=== PATIENT | male | born 1980 | race Caucasian/White ===

== ENCOUNTER 2019-10-04 08:15 | Emergency (ER) | payer OTHER, SELFPAY ==
[2019-10-04 16:53] LABS: SARS-CoV-2 MS2 Positive; SARS-CoV-2 N Gene Negative; SARS-CoV-2 S Gene Negative; SARS-CoV-2 orf1ab Negative
== END 2019-10-04 08:53 | disposition home or self-care (01) ==
LOC: ERS 08:15
DX: R06.02 Shortness of breath (principal); R11.0 Nausea; Z20.828 Contact with and (suspected) exposure to other viral communicable diseases; F17.200 Nicotine dependence, unspecified, uncomplicated
CPT/HCPCS: 87635; 99284; U0003

== ENCOUNTER 2020-02-02 09:56 | Emergency (ER) | payer SELFPAY ==
[2020-02-02 23:01] LABS: SARS-CoV-2 MS2 Positive; SARS-CoV-2 N Gene Negative; SARS-CoV-2 S Gene Negative; SARS-CoV-2 by NAA Not Detected (NotDetected); SARS-CoV-2 orf1ab Negative
== END 2020-02-02 10:31 | disposition home or self-care (01) ==
LOC: ERS 09:56
DX: R42 Dizziness and giddiness (principal); R11.0 Nausea; Z20.828 Contact with and (suspected) exposure to other viral communicable diseases
CPT/HCPCS: 87635; 99284; U0003

== ENCOUNTER 2020-05-20 22:20 | Emergency (ER) | payer SELFPAY ==
--- NOTE | 2020-05-20 22:52 | RAD ---
Exam:Right tibia fibula 2 view HISTORY: Trauma.-. COMPARISON: None FINDINGS: Small soft tissue laceration the anterior mid aspect of the right foot. Overlying bandage m aterial is identified. No radiopaque foreign body No fracture IMPRESSION: No fracture or radiopaque foreign body
[2020-05-20] MEDS ORDERED: Lidocaine 1% w/Epinephrine 1:100K 20 ML VIAL ONE (23:49)
[2020-05-20] MEDS ORDERED: Boostrix 0.5 ML (Tdap) VIAL ONE (23:49)
== END 2020-05-21 01:11 | disposition home or self-care (01) ==
LOC: ERS 22:20
DX: S81.811A Laceration without foreign body, right lower leg, initial encounter (principal); Z23 Encounter for immunization; W26.0XXA Contact with knife, initial encounter
CPT/HCPCS: 12001; 36416; 90471; 90715; 93005